=== PATIENT | female | born 1965 | race African-American/Black ===

== ENCOUNTER → 2023-01-18 | Outpatient (REF) | LOC: M PLAIMG 08:47 | PROVIDERS: ATTEND Internal Medicine | DX: R06.02 Shortness of breath (principal) ==

== ENCOUNTER → 2023-08-09 | Outpatient (CLI) | payer OTHER | LOC: M SOG 10:59 | PROVIDERS: ATTEND Orthopaedic Surgery | DX: M25.551 Pain in right hip (principal); M25.552 Pain in left hip ==

== ENCOUNTER → 2023-08-09 | Outpatient (CLI) | payer OTHER ==
[2023-08-09 12:46] LABS: BASO # 0.1 10^3/uL (0.0-0.2); EOS # 0.2 10^3/uL (0.0-0.5); EOS % 2.4 % (0.0-3.0); HEMATOCRIT 41.1 % (36.0-47.0); HEMOGLOBIN 13.5 g/dl (12.0-15.5); LYMPH # 2.7 10^3/uL (1.5-5.0); LYMPH % 42.2 % (24.0-44.0); MEAN CORPUSCULAR HEMOGLOBIN 30.5 pg (27.0-33.0); MEAN CORPUSCULAR HGB CONC 32.8 g/dl (32.0-36.5); MONO # 0.4 10^3/uL (0.0-0.8); MONO % 6.3 % (2.0-8.0); NEUTROPHILS % 47.9 % (36.0-66.0); PLATELET COUNT, AUTOMATED 268 10^3/uL (150-450); RED BLOOD COUNT 4.42 10^6/uL (4.00-5.40); WHITE BLOOD COUNT 6.3 10^3/uL (4.0-10.0)
[2023-08-09 13:10] LABS: HEMOGLOBIN A1c 5.4 % (4.0-6.0)
[2023-08-09 13:14] LABS: C REACTIVE PROTEIN QUANTITATIV < 0.40 MG/DL (<1.0)
[2023-08-09 13:16] LABS: ALBUMIN 4.2 G/DL (3.2-5.2); ALKALINE PHOSPHATASE 120 U/L (46-116); ALT/SGPT 38 U/L (7.0-40); AST/SGOT 23 U/L (<34); BILIRUBIN,TOTAL 0.7 MG/DL (0.3-1.2); BLOOD UREA NITROGEN 12 MG/DL (9-23); CALCIUM LEVEL 9.4 MG/DL (8.5-10.1); CARBON DIOXIDE LEVEL 29 MMOL/L (20-31); CHLORIDE LEVEL 109 MMOL/L (98-107); CREATININE FOR GFR 0.65 MG/DL (0.55-1.30); GLOMERULAR FILTRATION RATE > 60.0 (>51); GLUCOSE, FASTING 85 MG/DL (60-100); SODIUM LEVEL 143 MMOL/L (136-145); TOTAL 25(OH) VITAMIN D 25.6 NG/ML (20.0-100.0); TOTAL PROTEIN 7.3 G/DL (5.7-8.2)
== END ==
LOC: M LAB 11:58
PROVIDERS: ATTEND Orthopaedic Surgery
DX: M17.0 Bilateral primary osteoarthritis of knee (principal)

== ENCOUNTER 2023-08-18 09:31 | Outpatient (RCR) | payer OTHER | END 2023-08-20 | LOC: M PT 09:31 | PROVIDERS: ATTEND Orthopaedic Surgery | DX: M17.0 Bilateral primary osteoarthritis of knee (principal) ==

== ENCOUNTER → 2023-08-29 | Outpatient (CLI) | payer OTHER ==
[~2023-08-29] MED LIST: ATOR80TA59 PO; AZEL23SP NS; BAYE81TA10 PO; DEBR6.5S4 AU; DICL100G10 TOP; ESTR1DIS4 TD; FLON1SPR; HYDR-3363 PO; LORA-1041 PO; METH-1165 PO; NAPR1TAB86 PO; NORV5TAB PO; OLOP5DRO17 OU; OMEP40CA5 PO; PARO5TAB PO; TERB250T91 PO; THERTAB52 PO; VENTAER INH; XALA0.007 OU; ZOLP6.2517 PO
== END ==
LOC: M RAD 08:53
PROVIDERS: ATTEND Orthopaedic Surgery
DX: M17.0 Bilateral primary osteoarthritis of knee (principal)

== ENCOUNTER 2023-09-12 09:19 | Observation (INO) | payer OTHER ==
[2023-09-12] VITALS (7 sets, daily range): BP systolic 129–168; BP diastolic 65–80; TEMP 97.5–98.8; O2SAT 93–97
[~2023-09-12] VITALS: Ht 160 cm; Wt 81.5 kg
[~2023-09-12 09:19] MED LIST changes: +AZEL23SP NARES; -AZEL23SP NS; -FLON1SPR; +FLON1SPR NARES; +MIDAZOLAM INJ 2MG/2ML VIAL As Ordered ONE; +ROCURONIUM BROMIDE 50MG/5ML VIAL As Ordered ONE; +fentaNYL 100 MCG/2 ML INJECTION As Ordered ONE; +propofoL 200 MG/20 ML VIAL As Ordered ONE
[2023-09-12] MEDS ORDERED: LR 1,000 ML IV SCH ×2 (09:30→14:25)
[2023-09-12] MEDS ORDERED: MUPI2OI TOP (10:18)
[2023-09-12] MEDS ORDERED: HOME MED LIST COMPLETE! XX SCH (10:20)
[2023-09-12] MEDS: ceFAZolin SOD 2 GM in IV 1 EA IV ONE (12:00)
[2023-09-12] MEDS: TRANEXAMIC ACID 100 MG/ML 10ML VIAL IV ONE (12:15)
[2023-09-12] MEDS ORDERED: ONDANSETRON 4MG 2ML VIAL As Ordered ONE (12:16)
[2023-09-12] MEDS ORDERED: HYDROmorphone HCL 2MG/ML 1ML VIAL As Ordered ONE (12:17)
[2023-09-12] MEDS: TRANEXAMIC ACID 100 MG/ML 10ML VIAL As Ordered ONE (13:47)
[2023-09-12] MEDS: ROPIVA 100MG/KETOR 15MG/EPINEPHRINE 0.3MG IN NS 50ML SYRINGE PA ONE (13:48)
[2023-09-12] MEDS ORDERED: oxyCODONE 5MG TAB PO PRN ×2 (14:00→14:25)
[2023-09-12] MEDS ORDERED: SENNA 8.6 MG TAB (SENOKOT) PO PRN (14:00)
[2023-09-12] MEDS ORDERED: ALBUTEROL 90 MCG/ACT 8GM HFA INHALER INH PRN (14:05)
[2023-09-12] MEDS ORDERED: OLOPATADINE 0.1% OPHTH SOL 5ML(PATANOL) OU PRN (14:05)
[2023-09-12] MEDS ORDERED: LORATADINE 10 MG TAB PO PRN (14:05)
[2023-09-12] MEDS ORDERED: methocarbamoL 750 MG TAB PO PRN (14:05)
[2023-09-12] MEDS ORDERED: SUGAMMADEX SODIUM 500 MG/5 ML VIAL (BRIDION) As Ordered ONE (14:09)
[2023-09-12] MEDS ORDERED: ONDANSETRON 4MG 2ML VIAL IV PRN (14:25)
[2023-09-12] MEDS ORDERED: fentaNYL 100 MCG/2 ML INJECTION IV PRN (14:25)
[2023-09-12] MEDS ORDERED: HYDROMORPHONE HCL 0.5 MG/ 0.5 ML SYRINGE IV PRN (14:25)
[2023-09-12] MEDS ORDERED: ZOLP5TAB PO (16:09)
[2023-09-12] MEDS ORDERED: AZEL0.1S NARES (16:09)
[2023-09-12] MEDS ORDERED: OMEP-173 PO (16:09)
[2023-09-12] MEDS: LR 1,000 ML IV SCH (16:12)
[2023-09-12] MEDS: ONDANSETRON 4MG 2ML VIAL IV PRN (16:12)
[2023-09-12] MEDS ORDERED: PARO20TA4 PO (16:14)
[2023-09-12] MEDS ORDERED: LIDO5OIN19 TOP (16:14)
[2023-09-12] MEDS ORDERED: ACET-897 PO (16:14)
[2023-09-12] MEDS ORDERED: SENN-188 PO (16:16)
[2023-09-12] MEDS ORDERED: MM S100C PO (16:16)
[2023-09-12] MEDS: oxyCODONE 5MG TAB PO PRN (17:06)
[2023-09-12] MEDS: amLODIPine 5 MG TAB PO SCH (17:07)
[2023-09-12] MEDS: FERROUS SULFATE 325MG TAB PO SCH (17:07)
[2023-09-12] MEDS: ATORVASTATIN 20 MG TAB PO SCH (17:07)
[2023-09-12] MEDS: ASCORBIC ACID 500 MG TAB PO SCH (17:10)
[2023-09-12] MEDS: ACETAMINOPHEN TAB 650MG DOSE (2X325MG) PO SCH (18:00)
[2023-09-12] MEDS: ceFAZolin SOD 2 GM in IV 1 EA IV SCH (19:30)
[2023-09-12] MEDS: DOCUSATE SODIUM 100MG CAPSULE PO SCH (20:03)
[2023-09-12] MEDS: NAPROXEN 250 MG TAB PO SCH (20:03)
[2023-09-12] MEDS: ASPIRIN 81MG ENTERIC TABLET PO SCH (20:03)
[2023-09-12] MEDS: PARoxetine 10MG TABLET PO SCH (20:04)
[2023-09-12] MEDS: LATANOPROST 0.005% OPHTH SOLN 2.5 ML OU SCH (20:05)
[2023-09-13 02:30] VITALS: BP 130/66; TEMP 98.4; O2SAT 93
[2023-09-13 06:30] VITALS: BP 132/67; TEMP 98.4; O2SAT 94
[2023-09-13 06:44] LABS: HEMATOCRIT 32.7 % (36.0-47.0); HEMOGLOBIN 10.8 g/dl (12.0-15.5); MEAN CORPUSCULAR HEMOGLOBIN 30.3 pg (27.0-33.0); MEAN CORPUSCULAR VOLUME 91.6 fl (80.0-96.0); PLATELET COUNT, AUTOMATED 223 10^3/uL (150-450); RED BLOOD COUNT 3.57 10^6/uL (4.00-5.40); WHITE BLOOD COUNT 11.1 10^3/uL (4.0-10.0)
[2023-09-13 07:11] LABS: ALBUMIN 2.8 G/DL (3.2-5.2); ALKALINE PHOSPHATASE 93 U/L (46-116); ALT/SGPT 19 U/L (7.0-40); AST/SGOT 19 U/L (<34); BILIRUBIN,TOTAL 0.6 MG/DL (0.3-1.2); BLOOD UREA NITROGEN 11 MG/DL (9-23); CALCIUM LEVEL 8.4 MG/DL (8.5-10.1); CARBON DIOXIDE LEVEL 28 MMOL/L (20-31); CHLORIDE LEVEL 105 MMOL/L (98-107); CREATININE FOR GFR 0.65 MG/DL (0.55-1.30); GLOMERULAR FILTRATION RATE > 60.0 (>51); GLUCOSE, FASTING 113 MG/DL (60-100); PHOSPHORUS LEVEL 3.9 MG/DL (2.5-4.9); POTASSIUM SERUM 3.9 MMOL/L (3.5-5.1); SODIUM LEVEL 141 MMOL/L (136-145); TOTAL PROTEIN 5.5 G/DL (5.7-8.2)
[2023-09-13 08:14] VITALS: BP 135/66
[2023-09-13] MEDS: FLUTICASONE PROP 0.05% NASAL SPRAY 16 GM (FLONASE) NARES SCH (08:15)
[2023-09-13] MEDS ORDERED: CEFA500C2 PO (08:43)
[2023-09-13] MEDS ORDERED: ASPI81TAEC PO (08:43)
[2023-09-13] MEDS ORDERED: SENO8.6T5 PO (08:43)
[2023-09-13] MEDS ORDERED: OXYC1TAB23 PO (08:43)
[2023-09-13] MEDS ORDERED: MELOXICAM (MOBIC) 7.5 MG TAB PO SCH (09:00)
[2023-09-13 10:35] VITALS: BP 157/88; TEMP 97.5; O2SAT 95
== END 2023-09-13 14:00 | disposition home or self-care (01) ==
LOC: M SDC 09:19 → M ED INP 09:20 → M MS5PR 15:35
PROVIDERS: ADMIT Orthopaedic Surgery; ATTEND Orthopaedic Surgery
DX: M17.11 Unilateral primary osteoarthritis, right knee (principal); G47.30 Sleep apnea, unspecified; F43.10 Post-traumatic stress disorder, unspecified; R06.02 Shortness of breath; Z91.040 Latex allergy status; Z79.899 Other long term (current) drug therapy
CPT/HCPCS: 27447; 36415; 73560; 80053; 80069; 85027; 88300; 96374; 96376; 97110; 97116; 97161; 97165; 97530; C1713; C1776; G0378; J0690; J1100; J1170; J2250; J2405; J3010; S2900

== ENCOUNTER → 2023-09-25 | Outpatient (CLI) | payer OTHER ==
[~2023-09-25] MED LIST changes: +ACET-897 PO; +ASPI81TAEC PO; +AZEL0.1S NARES; +CEFA500C2 PO; +LIDO5OIN19 TOP; -MIDAZOLAM INJ 2MG/2ML VIAL As Ordered ONE; +MM S100C PO; +MUPI2OI TOP; +OMEP-173 PO; +OXYC1TAB23 PO; +PARO20TA4 PO; -ROCURONIUM BROMIDE 50MG/5ML VIAL As Ordered ONE; +SENN-188 PO; +SENO8.6T5 PO; +ZOLP5TAB PO; -ZOLP6.2517 PO; +ZOLP6.2526 PO; -fentaNYL 100 MCG/2 ML INJECTION As Ordered ONE; -propofoL 200 MG/20 ML VIAL As Ordered ONE
== END ==
LOC: M SOG 11:26
PROVIDERS: ATTEND Orthopaedic Surgery
DX: Z47.1 Aftercare following joint replacement surgery (principal)

== ENCOUNTER 2023-11-06 23:22 | Emergency (ER) | payer OTHER ==
[~2023-11-06] VITALS: Ht 160 cm; Wt 78.2 kg
[2023-11-07] MEDS: CIPRODEX OTIC SUSP 7.5ML AD STA (03:39)
[2023-11-07 07:00] VITALS: BP 139/72; TEMP 97; O2SAT 99
[2023-11-07] MEDS ORDERED: CIPR7.5D2 OTIC SA (07:09)
== END 2023-11-07 07:12 | disposition home or self-care (01) ==
LOC: M ED 23:22
DX: M25.551 Pain in right hip (principal); H60.91 Unspecified otitis externa, right ear; L91.8 Other hypertrophic disorders of the skin; J45.909 Unspecified asthma, uncomplicated; I10 Essential (primary) hypertension; K21.9 Gastro-esophageal reflux disease without esophagitis; F32.A Depression, unspecified; Z91.040 Latex allergy status; Z79.1 Long term (current) use of non-steroidal anti-inflammatories (NSAID); Z79.51 Long term (current) use of inhaled steroids; Z79.2 Long term (current) use of antibiotics; Z79.810 Long term (current) use of selective estrogen receptor modulators (SERMs); Z79.899 Other long term (current) drug therapy

== ENCOUNTER 2023-11-10 09:36 | Emergency (ER) | payer OTHER ==
[~2023-11-10 09:36] MED LIST changes: +CIPR7.5D2 OTIC SA
== END 2023-11-11 05:40 | disposition left against medical advice (07) ==
LOC: M ED 09:36
DX: Z53.21 Procedure and treatment not carried out due to patient leaving prior to being seen by health care provider (principal)

== ENCOUNTER → 2023-11-15 | Outpatient (CLI) | payer OTHER | LOC: M SOG 07:53 | PROVIDERS: ATTEND Orthopaedic Surgery | DX: Z47.1 Aftercare following joint replacement surgery (principal); Z96.651 Presence of right artificial knee joint ==

== ENCOUNTER → 2024-01-25 | Outpatient (CLI) | payer OTHER | LOC: M SOG 07:55 | PROVIDERS: ATTEND Orthopaedic Surgery | DX: Z96.651 Presence of right artificial knee joint (principal) ==

== ENCOUNTER → 2024-01-26 | Outpatient (CLI) | payer OTHER ==
[2024-01-26 14:37] LABS: BASO # 0.1 10^3/uL (0.0-0.2); BASO % 1.7 % (0.0-1.0); EOS # 0.2 10^3/uL (0.0-0.5); EOS % 3.3 % (0.0-3.0); HEMOGLOBIN 13.2 g/dl (12.0-15.5); LYMPH # 2.1 10^3/uL (1.5-5.0); LYMPH % 42.6 % (24.0-44.0); MEAN CORPUSCULAR HEMOGLOBIN 29.1 pg (27.0-33.0); MEAN CORPUSCULAR HGB CONC 32.2 g/dl (32.0-36.5); MEAN CORPUSCULAR VOLUME 90.3 fl (80.0-96.0); MONO # 0.4 10^3/uL (0.0-0.8); MONO % 8.1 % (2.0-8.0); NEUTROPHILS # 2.1 10^3/uL (1.5-8.5); NEUTROPHILS % 44.3 % (36.0-66.0); PLATELET COUNT, AUTOMATED 265 10^3/uL (150-450); RED BLOOD COUNT 4.54 10^6/uL (4.00-5.40); WHITE BLOOD COUNT 4.8 10^3/uL (4.0-10.0)
== END ==
LOC: M PLALAB 09:09
PROVIDERS: ATTEND Orthopaedic Surgery
DX: Z47.1 Aftercare following joint replacement surgery (principal); Z79.899 Other long term (current) drug therapy

== ENCOUNTER → 2024-03-14 | Outpatient (CLI) | payer OTHER | LOC: M WHC 08:48 | PROVIDERS: ATTEND Nurse Practitioner Family | DX: Z12.31 Encounter for screening mammogram for malignant neoplasm of breast (principal); R92.323 Mammographic fibroglandular density, bilateral breasts ==

== ENCOUNTER → 2024-04-25 | Outpatient (CLI) | payer OTHER ==
[~2024-04-25] MED LIST changes: -AZEL0.1S NARES; +AZEL137S8 NARES
== END ==
LOC: M SOG 07:51
PROVIDERS: ATTEND Orthopaedic Surgery
DX: Z96.651 Presence of right artificial knee joint (principal); Z47.1 Aftercare following joint replacement surgery

== ENCOUNTER → 2024-07-24 | Outpatient (CLI) | payer OTHER | LOC: M SOG 07:47 | PROVIDERS: ATTEND Orthopaedic Surgery | DX: Z96.651 Presence of right artificial knee joint (principal); M17.12 Unilateral primary osteoarthritis, left knee ==

== ENCOUNTER → 2024-08-14 | Outpatient (CLI) | payer OTHER ==
[~2024-08-14] MED LIST changes: +OMEGA-3 1000MG CAPSULE ONE
== END ==
LOC: M PLAIMG 09:02
PROVIDERS: ATTEND Orthopaedic Surgery
DX: M79.632 Pain in left forearm (principal)

== ENCOUNTER → 2025-02-05 | Outpatient (CLI) | payer OTHER ==
[~2025-02-05] MED LIST changes: +ASPI81TA26 PO; +CELE1CAP99 PO; +D3 S20002 PO; -OMEGA-3 1000MG CAPSULE ONE; +SENN-225 PO; -SENO8.6T5 PO; +TRAZ-252 PO; -ZOLP5TAB PO; +ZOLP5TAB9 PO
== END ==
LOC: M SOG 07:24
PROVIDERS: ATTEND Orthopaedic Surgery
DX: Z96.651 Presence of right artificial knee joint (principal)

== ENCOUNTER → 2025-03-21 | Outpatient (CLI) | payer OTHER | LOC: M WHC 09:46 | PROVIDERS: ATTEND Nurse Practitioner Family | DX: Z12.31 Encounter for screening mammogram for malignant neoplasm of breast (principal) ==

== ENCOUNTER → 2025-05-02 | Outpatient (CLI) | payer OTHER | LOC: M PLARAD 09:29 | PROVIDERS: ATTEND Nurse Practitioner Family | DX: M54.16 Radiculopathy, lumbar region (principal) ==